=== PATIENT | female | born 1980 | race Caucasian/White ===

== ENCOUNTER → 2017-07-27 14:27 | Outpatient (CLI) | payer OTHER, SELFPAY ==
--- NOTE | 2017-07-27 14:29 | US_ITS ---
US transvaginal HISTORY: ITS.REASON: US T/V- Polycystic ovaries ORDERING PHYSICIAN: Prashanth Parikh MD PATIENT AGE: 37 years Comparison: None FINDINGS: Uterus is retroverted and measures 8 x 5 x 5 cm with a combined endometrial thickness of 1 cm. Left ovary measures 2.9 x 2.3 cm and contains small follicles. The right ovary measures 3.5 x 3 cm also containing small follicles. No dominant cyst. Minimal amount of cul-de-sac fluid. IMPRESSION: Small bilateral ovarian follicles with endometrial thickness at upper limits of normal. Otherwise negative pelvic ultrasound
--- NOTE | 2017-07-27 14:29 | US_ITS ---
US breast LT complete INDICATION: Lumpy area left breast ORDERING PHYSICIAN: Prashanth Parikh MD PATIENT AGE: 37 years COMPARISON: None TECHNIQUE: Standard images performed of the left breast and axilla FINDINGS: Heterogeneous fibroglandular tissue noted. No cystic or solid mass apparent. Small nodes are present in the axilla. IMPRESSION: Unremarkable left breast ultrasound BI-RADS Category: 1 Negative Recommend follow-up as clinically warranted. Negative ultrasound does not exclude the possibility of malignancy. Any palpable nodule should be managed on a clinical basis. If there remains a palpable nodule within follow-up with mammogram may be in order. (A letter has been sent to the patient regarding results of the study.)
== END ==
PROVIDERS: Family Provider Family Medicine; PCP Family Medicine; Visit Provider Nurse Practitioner Obstetrics & Gynecology
DX: N60.12 Diffuse cystic mastopathy of left breast (principal); E28.2 Polycystic ovarian syndrome
CPT/HCPCS: 76641; 76830

== ENCOUNTER → 2017-09-27 14:35 | Outpatient (CLI) | payer OTHER, SELFPAY ==
[2017-09-27 15:47] LABS: Alanine Aminotransferase 19 U/L (12-78); Albumin Level 3.4 gm/dL (3.4-5.0); Albumin/Globulin Ratio 1.1 (1.1-1.8); Alkaline Phosphatase 87 U/L (46-116); Anion Gap 9.2 mEq/L (5-15); Aspartate Amino Transferase 9 U/L (15-37); Bilirubin,Direct 0.1 mg/dL (0.0-0.2); Bilirubin,Total 0.2 mg/dL (0.2-1.0); Blood Urea Nitrogen 8 mg/dL (7-18); Calcium 8.9 mg/dL (8.5-10.1); Carbon Dioxide 29 mmol/L (21.0-32.0); Chloride 108 mmol/L (98-107); Creatinine,Serum 0.92 mg/dL (0.55-1.02); Estimated Glomerular Filt Rate 69 ml/min (>60); GFR (African American) 83 ML/MIN (>60); Glucose 94 mg/dL (74-106); Potassium 4.2 mmoL/L (3.5-5.1); Sodium 142 mmol/L (136-145); Total Protein,Serum 6.4 gm/dL (6.4-8.2)
== END ==
PROVIDERS: Visit Provider Nurse Practitioner Obstetrics & Gynecology
DX: Z09 Encounter for follow-up examination after completed treatment for conditions other than malignant neoplasm (principal)
CPT/HCPCS: 36415; 80053; 82248

== ENCOUNTER → 2020-10-30 20:24 | Outpatient (CLI) | payer MEDICARE, SELFPAY | PROVIDERS: Visit Provider Nurse Practitioner Family | DX: Z20.822 Contact with and (suspected) exposure to COVID-19 (principal); U07.1 COVID-19 | CPT/HCPCS: U0003 ==